=== PATIENT | female | born 1940 | race Caucasian/White ===

== ENCOUNTER 2022-09-22 09:00 | Emergency (ER) | payer OTHER ==
[~2022-09-22] VITALS: Ht 157.5 cm; Wt 52.2 kg
[2022-09-22 09:03] VITALS: BP_SYST 118
--- NOTE | 2022-09-22 09:05 | NUR ---
Note undone in EDM - 09/22/22 at 0943 by RICK PT BROUGHT IN by ACLSimone from [facility]. CC post choking incident. BLS notes pt was eating breakfast in facility and began choking, nurses . Insulin reported given at 0630 15 units of regular. Pt is aaox2, skin is dry and flaky, right hand with steristrips. left hand with 20 gauge IV started in field. Pt denies NV, pt denies chest pain.
--- NOTE | 2022-09-22 09:05 | NUR ---
PT BROUGHT IN by ACLS from [facility]. CC post choking incident. BLS notes pt was eating breakfast in facility and began choking. Nurse did blind sweep to remove obstruction. Insulin reported given at 0630 15 units of regular. Pt is aaox2, skin is dry and flaky, right hand with steristrips. left hand with 20 gauge IV started in field. Pt denies NV, pt denies chest pain.
--- NOTE | 2022-09-22 09:05 | NUR ---
Placed in room 07 . Placed on campus monitor, blood pressure machine and pulse oximeter. To gown for exam. Side rails up. Report given to VIRGEN VALENZUELA.
--- NOTE | 2022-09-22 09:10 | NUR ---
ER at bedside examining patient.
[2022-09-22 09:33] LABS: BASOPHILS % (AUTO) 0.5 % (0.0-2.0); EOSINOPHILS # (AUTO) 0.2 K/uL (0.0-0.4); EOSINOPHILS % (AUTO) 2.7 % (0.0-4.0); HEMATOCRIT 31.8 % (36-48); HEMOGLOBIN 10.6 g/dL (12.0-16.0); LYMPHOCYTES # (AUTO) 1.9 K/uL (1.0-5.5); LYMPHOCYTES % (AUTO) 21.4 % (20.5-51.5); MEAN CORPUSCULAR HEMOGLOBIN 31 pg (27-31); MEAN CORPUSCULAR HGB CONC 33 % (32-36); MEAN CORPUSCULAR VOLUME 93 fL (79.0-98.0); MONOCYTES # (AUTO) 0.6 K/uL (0.0-1.0); NEUTROPHILS # (AUTO) 5.9 K/uL (1.8-7.7); NEUTROPHILS % (AUTO) 68.4 % (40.0-70.0); PLATELET COUNT (AUTO) 287 K/uL (130-430); RED BLOOD CELL COUNT(AUTO) 3.43 MIL/uL (4.2-6.2); RED CELL DISTRIBUTION WIDTH 14.7 % (9.0-15.0); WHITE BLOOD COUNT (AUTO) 8.7 K/uL (4.8-10.8)
--- NOTE | 2022-09-22 09:46 | NUR ---
Pt ate soft mechanical diet 100% of applesauce, 25% of protein and 15% of oatmeal. Pt drank from straw milk 75%. Pt in upright position bedrails up bed down, pt is saturation 93% on room air. Pt is aaox2 appropriate to commands.
[2022-09-22 10:01] LABS: ANION GAP 3 (5-15); CALCIUM 9.3 mg/dL (8.4-11.0); CHLORIDE 108 mmol/L (98-107); CREATININE 1.07 mg/dL (0.55-1.30); GLUCOSE 134 mg/dL (70-99); UREA NITROGEN, BLOOD 32 mg/dL (8-21)
[2022-09-22 10:07] LABS: ALANINE AMINOTRANSFERASE 16 U/L (12-78); ALBUMIN 2.4 g/dL (3.4-4.8); ASPARTATE AMINOTRANSFERASE 16 U/L (10-37); TOTAL BILIRUBIN 0.4 mg/dL (0.0-1.0)
--- NOTE | 2022-09-22 10:18 | NUR ---
Accucheck: blood glucose 214
--- NOTE | 2022-09-22 11:04 | NUR ---
RAG COL[employer]OR informed of coordinating transpo. ETA 1130.
--- NOTE | 2022-09-22 11:45 | NUR ---
Patient given written and verbal discharge instructions and verbalizes understanding. ER MD discussed with patient the results and treatment provided. Patient in stable condition. ID arm band removed. Opportunity for questions provided and answered. Medication side effect fact sheet provided.
[2022-09-22 13:52] VITALS: BP_SYST 119
== END 2022-09-22 11:45 | disposition home or self-care (01) ==
LOC: SED 09:00
DX: E11.649 Type 2 diabetes mellitus with hypoglycemia without coma (principal); R41.82 Altered mental status, unspecified; Z88.0 Allergy status to penicillin; Z79.899 Other long term (current) drug therapy
CPT/HCPCS: 36415; 71045; 80053; 82962; 85025; 99284